=== PATIENT | male | born 1955 | race Caucasian/White ===

== ENCOUNTER → 2017-04-11 | Outpatient (CLI) | payer BC | LOC: FIMAGING 09:38 | PROVIDERS: ATTEND Orthopaedic Surgery | DX: Z01.818 Encounter for other preprocedural examination (principal); M16.11 Unilateral primary osteoarthritis, right hip ==

== ENCOUNTER 2017-04-25 08:15 | Inpatient (IN) | payer BC ==
[~2017-04-25 08:15] MED LIST: ROPIVACAINE 0.2% 80 MG, EPINEPHrine 0.2 MG, KETOROLAC TROMETHAMINE 30 MG in SYRINGE 0 ML IU ONE; TRANEXAMIC ACID 3,000 MG in NS (SYRINGE) 50 ML IRR ONE
[2017-04-25] MEDS ORDERED: TRANEXAMIC ACID 3,000 MG/50 ML BAG IRR ONE (11:07)
--- NOTE | 2017-04-25 11:14 | PDHPUP ---
History & Physical Update H&P update statement: This history and physical update is based on an assessment of the patient which was completed after admission or registration (within 24 hours), but prior to the surgery/procedure. H&P update: H&P reviewed & patient examined, no change in patient's condition since H&P completed
[2017-04-25] MEDS ORDERED: ceFAZolin 2 GM/SWFI 2 GM/20 ML SYR IVP ONE (11:36)
[2017-04-25] MEDS ORDERED: FAMOTIDINE 20 MG TAB PO ONE (11:36)
[2017-04-25] MEDS ORDERED: ACETAMINOPHEN 325 MG TAB PO ONE (11:36)
[2017-04-25] MEDS ORDERED: DEXAMETHASONE 4 MG/ML VIAL IVP ONE (11:36)
[2017-04-25] MEDS ORDERED: LIDOCAINE 1% 2 ML INJ ID PRN (11:37)
[2017-04-25] MEDS ORDERED: LR 1,000 ML IV ONE (11:37)
[2017-04-25] MEDS ORDERED: PROPOFOL/EMULSION 500 MG/50 ML BOTTLE IV ONE ×2 (12:50→13:54)
[2017-04-25] MEDS ORDERED: LIDOCAINE 2% 100 MG/5 ML SYR ONE (12:50)
[2017-04-25] MEDS ORDERED: BUPIVACAINE/DEXTROSE 7.5MG/ML 2 ML SPINAL AMP SP ONE (12:50)
--- NOTE | 2017-04-25 12:52 | PDANEPAE ---
ANE Past Medical History - Cardiovascular History Hx Hypertension: No Hx Arrhythmias: Yes Hx Chest Pain: No Hx Coronary Artery / Peripheral Vascular Disease: No Hx CHF / Valvular Disease: No Hx Palpitations: No Cardiovascular History Comment: irregular heart beat when he was laying down at night several years ago- worked up and found that he was drinking coffee too late in day - Pulmonary History Hx COPD: No Hx Asthma/Reactive Airway Disease: Yes Hx Recent Upper Respiratory Infection: No Hx Oxygen in Use at Home: No Hx Sleep Apnea: No Sleep Apnea Screening Result - Last Documented: Negative Pulmonary History Comment: mild asthma- uses inhaler prn- instructed pt to bring to hospital - Neurologic History Hx Cerebrovascular Accident: No Hx Seizures: No Hx Dementia: No Neurologic History Comment: bulging discs in neck and back - Endocrine History Hx Diabetes: No - Renal History Hx Renal Disorders: No - Liver History Hx Hepatic Disorders: No - Neurological & Psychiatric Hx Hx Neurological and Psychiatric Disorders: No - Cancer History Hx Cancer: Yes Cancer History Comment: skin ca removed from nose x1 - Congenital Disorder History Hx Congenital Disorders: No - GI History Hx Gastrointestinal Disorders: No - Other Health History Other Health History: none - Chronic Pain History Chronic Pain: Yes (right hip and back pain) - Surgical History Prior Surgeries: tonsillectomy 24 yo. wisdom teeth late 70's. appy at 2 yo ANE Review of Systems Review of Systems: - Exercise capacity METS (RN): 4 METS ANE Patient History - Allergies Allergies/Adverse Reactions: No Known Allergies Allergy (Verified 03/26/17 13:56) - Home Medications Home Medications: Mometasone 220Mcg Inhaler [Asmanex Inh (*)] 1 puffs IH DAILY 01/12/09 [Last Taken 04/23/17] Ibuprofen [Motrin (*)] 200 mg PO Q6H PRN 03/20/17 [Last Taken 04/11/17] Naproxen Sodium [Aleve 220 MG (*)] 220 mg PO BID PRN 03/20/17 [Last Taken ] - NPO status NPO Since - Liquids (Date): 04/25/17 NPO Since - Liquids (Time): 08:00 NPO Since - Solids (Date): 04/24/17 NPO Since - Solids (Time): 23:55 - Smoking Hx Smoking Status: Never smoked - Family Anes Hx Family Hx Anesthesia Complications: none ANE Labs/Vital Signs - Vital Signs Blood Pressure: 142/99 Heart Rate: 85 Respiratory Rate: 16 O2 Sat (%): 94 Height: 177.8 cm Weight: 89.358 kg ANE Physical Exam - Airway Neck exam: FROM Mallampati Score: Class 2 Mouth exam: normal dental/mouth exam - Pulmonary Pulmonary: no respiratory distress - Cardiovascular Cardiovascular: regular rate and rhythym - ASA Status ASA Status: II ANE Anesthesia Plan Anesthesia Plan: spinal Regional Anesthesia: single shot NB Total IV Anesthesia: Yes
[2017-04-25] MEDS ORDERED: DIPHENOXYLATE/ATROPINE LOMOTIL 1 TAB PO PRN (13:41)
[2017-04-25] MEDS ORDERED: METOCLOPRAMIDE 10 MG/2 ML VIAL IVP PRN (13:41)
[2017-04-25] MEDS ORDERED: CYCLOBENZAPRINE 10 MG TAB PO PRN (13:41)
[2017-04-25] MEDS ORDERED: PROMETHAZINE HCL 25 MG SUPPR PR PRN (13:41)
[2017-04-25] MEDS ORDERED: MAGNESIUM HYDROXIDE 30 ML UDCUP PO PRN (13:41)
[2017-04-25] MEDS ORDERED: PROMETHAZINE HCL 25 MG/ML INJ IVP PRN (13:41)
[2017-04-25] MEDS ORDERED: diphenhydrAMINE 25 MG CAP PO PRN (13:41)
[2017-04-25] MEDS ORDERED: ONDANSETRON DISINTEGRATING 4 MG TAB PO PRN (13:41)
[2017-04-25] MEDS ORDERED: LACTULOSE 20 GM/30 ML UDCUP PO PRN (13:41)
[2017-04-25] MEDS ORDERED: BISACODYL 10 MG SUPP PR PRN (13:41)
[2017-04-25] MEDS ORDERED: POLYETHYLENE GLYCOL 3350 17 GM PKT PO PRN (13:41)
[2017-04-25] MEDS ORDERED: TEMAZEPAM 15 MG CAP PO PRN (13:41)
[2017-04-25] MEDS ORDERED: ONDANSETRON 4 MG/2 ML VIAL IVP PRN ×2 (13:41→14:42)
[2017-04-25] MEDS ORDERED: LR 1,000 ML IV SCH (14:00)
--- NOTE | 2017-04-25 14:36 | POSTOPPROG ---
Post Op Note Date of Operation: 04/25/17 Surgeon: Verito Coronel [employer] Programmer: jenn coronel Anesthesiologist: dr. franz Anesthesia: Spinal Pre-op Diagnosis: right hip OA Post-op Diagnosis: same Indication: right hip pain due to OA that failed conservative measures Procedure: R NIKKI ant approach robot assisted Findings: severe hip OA Inf/Abcess present in the surg proc area at time of surgery?: No EBL: 100-500
[2017-04-25] MEDS ORDERED: MEPERIDINE 25 MG/ML SYR IVP PRN (14:42)
[2017-04-25] MEDS ORDERED: ALBUTEROL 3 ML DEYVIAL IH PRN (14:42)
[2017-04-25] MEDS ORDERED: fentaNYL 100 MCG/2 ML INJ IVP PRN (14:42)
[2017-04-25] MEDS ORDERED: NALOXONE HCL 0.4 MG/ML INJ IVP PRN (14:42)
--- NOTE | 2017-04-25 14:44 | POSTANESTH ---
Post Anesthetic Evaluation Cardiovascular Status: Similar to Pre-Op Cond Respiratory Status: Similar to Pre-op Cond. Level of Consciousness/Mental Status: Alert and Oriented Pain Control: Adequate, Prn Tx Ordered Nausea/Vomiting Control: Adequate, Prn Tx Ordered Complications Possibly Related to Anesthesia: None Noted
[2017-04-25] MEDS: ACETAMINOPHEN 325 MG TAB PO SCH (17:18)
[2017-04-25] MEDS: oxyCODONE IR 5 MG TAB PO PRN ×2 (17:18→21:27)
--- NOTE | 2017-04-25 18:49 | GOP ---
[f rep st] OPERATIVE REPORT DATE OF OPERATION: 04/25/2017 SURGEON: Phi White MD BOAT DIESEL MOTOR MECHANIC: TAMMY Almanzar ANESTHESIA: Spinal. PREOPERATIVE DIAGNOSIS: Right hip osteoarthritis. POSTOPERATIVE DIAGNOSIS: Right hip osteoarthritis. PROCEDURE PERFORMED: Right total hip arthroplasty with computer navigation and robotic assist. FINDINGS: ESTIMATED BLOOD LOSS: 200 cc. INDICATIONS: The patient has progressively worsening arthritis of the hip which has failed medical m anagement. The patient understands the treatment option including continued non-operative care and h as selected surgical intervention. The patient has decided to undergo total hip arthroplasty via the direct anterior approach understanding the risks of the procedure including, but not limited to, teresa rovascular injury, infection, persistent pain, component wear and loosening, deep venous thrombosis, pulmonary embolism, limb length inequality (including dislocation), and intraoperative fractures. DESCRIPTION OF PROCEDURE: After proper identification of the patient including verification and lai ing the surgical site, the patient was brought to the operating room and placed in the supine positio n. All bony prominences were well padded. Anesthesia was induced without complication and intraveno us prophylactic antibiotics were administered prior to skin incision. After prepping and draping in the usual sterile fashion, attention was drawn to the contralateral pel vis for attachment of the computer navigation tracker. Three percutaneous incisions were made over t he iliac crest and the pelvic tracker was affixed using threaded 3.5 mm pins yielding excellent fixat ion. Using computer navigation the patient's leg length and topographical pelvic anatomy was registe red without complication. Attention was then drawn to surgical exposure of the hip. An incision was made with a #10 Bard Artem r blade starting 3 cm lateral and 3 cm distal to the anterior superior iliac spine measuring 8 cm to 10 cm and coursing distally toward the greater trochanter. The skin and subcutaneous tissues were di vided sharply down the fascia rich. The fascia rich was incised in line with the skin incision expos ing the underlying tensor fascia rich muscle. This muscle was bluntly elevated from the fascia and t he first extracapsular Cobra retractor was placed laterally at the junction of the superior femoral n melissa and greater trochanter. The lateral femoral circumflex vessels were identified, cauterized and d ivided with the Aquamantys bipolar cautery. The deep investing fascia of the TFL was divided to allo w proper mobilization of the muscle preventing damage during retraction. The reflected head of the r ectus femoris muscle was elevated off the anterior hip capsule and a medial Cobra retractor was place d just proximal to the lesser trochanter. The anterior capsulotomy was made sharply from the superolateral acetabulum to the saddle junction of the superior femoral neck and greater trochanter, then coursing inferomedial towards the lesser troc hanter. The retractors were then placed in the intracapsular position for femoral neck osteotomy. C orresponding to preoperative templating the osteotomy was made with the oscillating saw protecting th e greater trochanter and soft tissues. The femoral head was removed from the acetabulum with a corks crew and confirmed to be severely arthritic with exposed bone, deformity and osteophytes. Similar fi nding were confirmed in the acetabulum. The Arch table extension was then placed in 40 degrees external rotation. Attention was then drawn t o the acetabular preparation. After placement of the anterior and posterior Cobra retractors outside the labrum and intrascapular the circumferential labrum was removed sharply. The foveal contents we re then removed and hemostasis obtained with cautery. The anatomy of the acetabulum was then registe red using computer navigation. The first reamer selected was sized using the removed femoral head. Reaming began with robotic tiarra t at 40 degrees of abduction and 20 degrees of anteversion using computer navigation. Reaming ceased 0 mm less than the definitive acetabular component. The final acetabular component was inserted usi ng the computer to achieve proper orientation yielding excellent purchase and stability in the acetab ulum. The final acetabular liner was then placed and its seating confirmed. Attention was then turned to the femur. The Arch table extension was placed in extension and adducti on delivering the osteotomized femoral neck into the wound. A 2-pronged femoral elevator was placed at the calcar and another at the tip of the greater trochanter. The posterolateral capsule was relea sed with cautery allowing mobilization of the femur lateral and anterior for preparation. The applications engineer al rotators were visualized and preserved. A curette and rongeur were used to open the starting poin t for broaching. Serial broaching started with the #0 broach and ended with the broach that exhibited excellent fit in the proximal femur. A change in pitch during mallet strikes was accompanied by the inability to advance the broach any further. The trial reduction was performed and fluoroscopic fany igation was utilized to check limb length. Adjustments were made to equalize limb length accordingly . After the final trials were accepted they were removed and the wound was copiously lavaged. The femo ral component was seated to the same depth as the final broach and the femoral head was impacted onto the clean trunnion. The hip was then reduced for the final time and once more fluoroscopic navigati on used to check that limb length equality was achieved. The wound was irrigated and closed in layers, the fascia rich with 2-0 Quill, the subcutaneous tissue with a 2-0 Quill, and the skin with Dermabond, including the small incisions for computer navigation . Sterile dressings were applied. Final sharps and sponge counts were accurate. The patient was th en transferred to a hospital bed and brought to the recovery room in stable condition. IMPLANTS: Accolade II, size 5 at 127. Acetabular component is a 54 mm Trident II. The liner is a T rident X3, 36 mm. The head is a Biolox Delta, 36 mm +0. /[id number]/MODL
[2017-04-25] MEDS: FAMOTIDINE 20 MG TAB PO SCH (21:19)
[2017-04-25] MEDS: ASPIRIN 81 MG CHEWABLE TAB PO SCH (21:19)
[2017-04-25] MEDS: SENNOSIDES/DOCUSATE SODIUM TAB PO SCH (21:20)
[2017-04-25] MEDS: ceFAZolin 2 GM/DEXTROSE 100 ML IV SCH (21:21)
[2017-04-26] MEDS: ACETAMINOPHEN 325 MG TAB PO SCH ×3 (00:05→11:19)
[2017-04-26] MEDS: ceFAZolin 2 GM/DEXTROSE 100 ML IV SCH (04:36)
[2017-04-26 07:20] VITALS: BP 132/84; PULSE 77; RESP 18; TEMP 98.3; O2SAT 94
[2017-04-26] MEDS ORDERED: MOMETASONE 220MCG INHALER IH SCH (09:00)
[2017-04-26] MEDS ORDERED: MOMETASONE 220 MCG IH SCH (09:00)
[2017-04-26] MEDS: SENNOSIDES/DOCUSATE SODIUM TAB PO SCH (09:14)
[2017-04-26] MEDS: ASPIRIN 81 MG CHEWABLE TAB PO SCH (09:14)
[2017-04-26] MEDS: FAMOTIDINE 20 MG TAB PO SCH (09:14)
--- NOTE | 2017-04-26 11:52 | SOAPPROG ---
SOAP Progress Note Assessment/Plan: Assessment: Patient is doing well POD 1 s/p R NIKKI Pain management: pain is well controlled on oral pain meds. VTE ppx: recommend aspirin 81 mg BID for 4 weeks, cont TIM and SCDs Anemia: level is expected initially postop. Asymptomatic. Continue to monitor D/c planning: d/c to home today pending release from PT Plan: 04/26/17 12:56 Subjective: mee is doing well today, denies SOB, chest pain and n/v Objective: Vital Signs Temp Pulse Resp BP Pulse Ox 36.8 C 77 18 132/84 H 94 04/26/17 07:18 04/26/17 07:18 04/26/17 07:18 04/26/17 07:18 04/26/17 07:18 Laboratory Results 04/26/17 04:30 04/25/17 04/26/17 04/27/17 05:59 05:59 05:59 Intake Total 1675 Output Total 1300 275 Balance 375 -275 incision dressing is clean and dry, NVI, +pf/df ICD10 Worksheet Patient Problems: Problems Problem Status Onset Primary localized osteoarthritis of right hip Acute
== END 2017-04-26 11:57 | disposition home or self-care (01) | DRG 470 ==
LOC: F3N 11:04
PROVIDERS: ADMIT Orthopaedic Surgery; ATTEND Orthopaedic Surgery
PROC: 8E0Y0CZ Robotic Assisted Procedure of Lower Extremity, Open Approach (ICD-10-PCS; principal; 2017-04-25 13:15)
PROC: 8E0YXBG Computer Assisted Procedure of Lower Extremity, With Computerized Tomography (ICD-10-PCS; principal; 2017-04-25 13:15)
PROC: 0SR902Z Replacement of Right Hip Joint with Metal on Polyethylene Synthetic Substitute, Open Approach (ICD-10-PCS; principal; 2017-04-25 13:15)
DX: M16.11 Unilateral primary osteoarthritis, right hip (principal); Z85.828 Personal history of other malignant neoplasm of skin
CPT/HCPCS: 97161-GP; 97165-GO; J0171; J0690; J1100; J1885; J2001; J2704; J2795

== ENCOUNTER → 2017-11-28 | Outpatient (CLI) | payer BC | LOC: FIMAGING 08:27 | PROVIDERS: ATTEND Orthopaedic Surgery | DX: M16.12 Unilateral primary osteoarthritis, left hip (principal) ==

== ENCOUNTER 2017-12-05 05:52 | Inpatient (IN) | payer BC ==
[2017-12-05] MEDS ORDERED: TRANEXAMIC ACID 3,000 MG in NS (SYRINGE) 50 ML IRR ONE (06:00)
[2017-12-05] MEDS ORDERED: ROPIVACAINE 0.2% 80 MG, EPINEPHrine 0.2 MG, KETOROLAC TROMETHAMINE 30 MG in SYRINGE 0 ML IU ONE (06:00)
[2017-12-05] MEDS ORDERED: ceFAZolin 2 GM/DEXTROSE 100 ML IV ONE (06:19)
[2017-12-05] MEDS ORDERED: ACETAMINOPHEN 325 MG TAB PO ONE (06:19)
[2017-12-05] MEDS ORDERED: DEXAMETHASONE 4 MG/ML VIAL IVP ONE (06:19)
[2017-12-05] MEDS ORDERED: FAMOTIDINE 20 MG TAB PO ONE (06:19)
[2017-12-05] MEDS ORDERED: LIDOCAINE 1% 2 ML INJ ID PRN (06:22)
[2017-12-05] MEDS ORDERED: TRANEXAMIC ACID 3,000 MG/50 ML BAG IRR ONE (06:22)
[2017-12-05] MEDS ORDERED: LR 1,000 ML IV ONE (06:22)
[2017-12-05] MEDS ORDERED: LIDOCAINE 2% 100 MG/5 ML SYR ONE (06:39)
[2017-12-05] MEDS ORDERED: BUPIVACAINE/DEXTROSE 7.5MG/ML 2 ML SPINAL AMP SP ONE (06:39)
[2017-12-05] MEDS ORDERED: PROPOFOL/EMULSION 500 MG/50 ML BOTTLE IV ONE (06:39)
[2017-12-05] MEDS ORDERED: MIDAZOLAM 2 MG/2 ML VIAL ONE (06:40)
[2017-12-05] MEDS ORDERED: PHENYLEPHRINE HCL 100 MCG/ML SYR ONE (06:54)
--- NOTE | 2017-12-05 06:57 | PDANEPAE ---
ANE History of Present Illness R NIKKI ANE Past Medical History - Cardiovascular History Hx Hypertension: No Hx Arrhythmias: No Hx Chest Pain: No Hx Coronary Artery / Peripheral Vascular Disease: No Hx CHF / Valvular Disease: No Hx Palpitations: No Cardiovascular History Comment: irregular heart beat when he was laying down at night several years ago- worked up and found that he was drinking coffee too late in day - Pulmonary History Hx COPD: No Hx Asthma/Reactive Airway Disease: Yes Hx Recent Upper Respiratory Infection: No Hx Oxygen in Use at Home: No Hx Sleep Apnea: No Sleep Apnea Screening Result - Last Documented: Negative Pulmonary History Comment: mild asthma- uses inhaler prn - Neurologic History Hx Cerebrovascular Accident: No Hx Seizures: No Hx Dementia: No Neurologic History Comment: bulging discs in neck and back - Endocrine History Hx Diabetes: No - Renal History Hx Renal Disorders: No - Liver History Hx Hepatic Disorders: No - Neurological & Psychiatric Hx Hx Neurological and Psychiatric Disorders: No - Cancer History Hx Cancer: Yes Cancer History Comment: skin ca removed from nose x1 - Congenital Disorder History Hx Congenital Disorders: No - GI History Hx Gastrointestinal Disorders: No - Other Health History Other Health History: none - Chronic Pain History Chronic Pain: No - Surgical History Prior Surgeries: tonsillectomy 24 yo. wisdom teeth late 70's. appy at 2 yo. R NIKKI 05/06 ANE Review of Systems Review of Systems: - Exercise capacity METS (RN): 4 METS ANE Patient History - Allergies Allergies/Adverse Reactions: No Known Allergies Allergy (Verified 03/26/17 13:56) - Home Medications Home Medications: Finasteride [Propecia] 1 mg PO HS 10/29/17 [Last Taken 12/04/17] Multivitamins [Multivitamin (*)] 1 each PO DAILY 10/29/17 [Last Taken 11/21/17] Naproxen Sodium [Aleve 220 MG (*)] 1 mg PO HS 10/29/17 [Last Taken 11/21/17] Asmanex Inh (*) 11/02/17 [Last Taken 12/01/17] Flonase Nasal [place] 11/02/17 [Last Taken Unknown] - Smoking Hx Smoking Status: Never smoked - Family Anes Hx Family Hx Anesthesia Complications: none ANE Labs/Vital Signs - Vital Signs Height: 177.8 cm Weight: 86.183 kg ANE Physical Exam - Airway Neck exam: FROM Mallampati Score: Class 1 Mouth exam: normal dental/mouth exam - Pulmonary Pulmonary: no respiratory distress - Cardiovascular Cardiovascular: regular rate and rhythym - ASA Status ASA Status: II ANE Anesthesia Plan Anesthesia Plan: MAC, spinal
[2017-12-05] MEDS ORDERED: DEXAMETHASONE 4 MG/ML VIAL ONE (07:00)
[2017-12-05] MEDS ORDERED: ONDANSETRON 4 MG/2 ML VIAL ONE (07:00)
[2017-12-05] MEDS ORDERED: fentaNYL 100 MCG/2 ML INJ ONE ×2 (07:39→09:10)
[2017-12-05] MEDS ORDERED: CYCLOBENZAPRINE 10 MG TAB PO PRN (08:45)
[2017-12-05] MEDS ORDERED: POLYETHYLENE GLYCOL 3350 17 GM PKT PO PRN (08:45)
[2017-12-05] MEDS ORDERED: BISACODYL 10 MG SUPP PR PRN (08:45)
[2017-12-05] MEDS ORDERED: MAGNESIUM HYDROXIDE 30 ML UDCUP PO PRN (08:45)
[2017-12-05] MEDS ORDERED: LACTULOSE 20 GM/30 ML UDCUP PO PRN (08:45)
[2017-12-05] MEDS ORDERED: METOCLOPRAMIDE 10 MG/2 ML VIAL IVP PRN (08:45)
[2017-12-05] MEDS ORDERED: PROMETHAZINE HCL 25 MG SUPPR PR PRN (08:45)
[2017-12-05] MEDS ORDERED: diphenhydrAMINE 25 MG CAP PO PRN (08:45)
[2017-12-05] MEDS ORDERED: ONDANSETRON DISINTEGRATING 4 MG TAB PO PRN (08:45)
[2017-12-05] MEDS ORDERED: DIPHENOXYLATE/ATROPINE LOMOTIL 1 TAB PO PRN (08:45)
[2017-12-05] MEDS ORDERED: ONDANSETRON 4 MG/2 ML VIAL IVP PRN (08:45)
[2017-12-05] MEDS ORDERED: TEMAZEPAM 15 MG CAP PO PRN (08:45)
[2017-12-05] MEDS ORDERED: PROMETHAZINE HCL 25 MG/ML INJ IVP PRN (08:45)
--- NOTE | 2017-12-05 08:45 | POSTOPPROG ---
Post Op Note Date of Operation: 12/05/17 Surgeon: Verito Coronel Carton Inspector: jenn coronel Anesthesiologist: dr. quintero Anesthesia: Spinal Pre-op Diagnosis: left hip OA Post-op Diagnosis: same Indication: left hip pain Procedure: L NIKKI ant approach, robot assisted Findings: severe hip OA Inf/Abcess present in the surg proc area at time of surgery?: No EBL: 100-500
[2017-12-05] MEDS ORDERED: LR 1,000 ML IV SCH (09:00)
[2017-12-05] MEDS: fentaNYL 100 MCG/2 ML INJ IVP PRN ×2 (09:09→09:20)
[2017-12-05] MEDS ORDERED: NALOXONE HCL 0.4 MG/ML INJ IVP PRN (09:10)
[2017-12-05] MEDS ORDERED: HYDROmorphONE/DILAUDID 1 MG/ML INJ IVP PRN (09:10)
[2017-12-05] MEDS ORDERED: HYDROmorphONE/DILAUDID 2 MG/ML INJ ONE (09:10)
[2017-12-05] MEDS ORDERED: ALBUTEROL 3 ML DEYVIAL IH PRN (09:10)
[2017-12-05] MEDS: HYDROmorphONE/DILAUDID 2 MG/ML INJ IVP PRN ×2 (09:10→09:20)
[2017-12-05] MEDS ORDERED: NS 500 ML IV PRN (09:10)
[2017-12-05] MEDS ORDERED: MEPERIDINE 25 MG/0.5 ML AMP IVP PRN (09:10)
[2017-12-05] MEDS: FAMOTIDINE 20 MG TAB PO SCH (10:10)
[2017-12-05] MEDS: SENNOSIDES/DOCUSATE SODIUM TAB PO SCH ×2 (10:10→21:33)
[2017-12-05] MEDS: oxyCODONE IR 5 MG TAB PO PRN ×4 (10:57→23:27)
[2017-12-05] MEDS: ACETAMINOPHEN 325 MG TAB PO SCH ×3 (11:06→23:28)
[2017-12-05] MEDS: MOMETASONE 220MCG INHALER IH SCH (11:47)
[2017-12-05] MEDS: ceFAZolin 2 GM/DEXTROSE 100 ML IV SCH ×2 (14:22→21:33)
--- NOTE | 2017-12-05 14:35 | PDMN ---
Medical Necessity Medical necessity: [facility] [place] S560 hip arthroplasty INPT only L NIKKI
--- NOTE | 2017-12-05 15:25 | POSTANESTH ---
Post Anesthetic Evaluation Cardiovascular Status: Normal, Stable Respiratory Status: Normal, Stable Level of Consciousness/Mental Status: Alert and Oriented Pain Control: Adequate, Prn Tx Ordered Nausea/Vomiting Control: Adequate, Prn Tx Ordered Complications Possibly Related to Anesthesia: None Noted (Exam limited due to residual spinal and mild bilater LE weakness while in PACU. Met PACU criteria for DC to floor)
[2017-12-05] MEDS ORDERED: FLUTICASONE NASAL 120 SPRAYS/16 GM MDI NS PRN (21:00)
[2017-12-05] MEDS ORDERED: Finasteride [Propecia] 1 MG PO SCH (21:00)
[2017-12-05] MEDS: ASPIRIN 81 MG CHEWABLE TAB PO SCH (21:33)
[2017-12-06 06:01] VITALS: BP 115/68
[2017-12-06] MEDS: ACETAMINOPHEN 325 MG TAB PO SCH (06:03)
[2017-12-06] MEDS: MOMETASONE 220MCG INHALER IH SCH (08:19)
[2017-12-06] MEDS: ASPIRIN 81 MG CHEWABLE TAB PO SCH (08:22)
[2017-12-06] MEDS: SENNOSIDES/DOCUSATE SODIUM TAB PO SCH (08:22)
[2017-12-06] MEDS: FAMOTIDINE 20 MG TAB PO SCH (08:22)
--- NOTE | 2017-12-06 08:28 | SOAPPROG ---
SOAP Progress Note Assessment/Plan: Assessment: Patient is doing well POD 1 s/p L NIKKI Pain management: pain is well controlled on oral pain meds. VTE ppx: recommend aspirin 81 mg BID for 4 weeks, cont TIM and SCDs Anemia: level is expected initially postop. Asymptomatic. Continue to monitor D/c planning: d/c to home today pending release from PT Plan: 12/06/17 08:28 Subjective: pain is minimal, denies SOB, chest pain and N/V. Objective: Vital Signs Temp Pulse Resp BP Pulse Ox 37.1 C 88 16 115/68 95 12/06/17 06:01 12/06/17 06:01 12/06/17 06:01 12/06/17 06:01 12/06/17 06:01 Laboratory Results 12/06/17 04:33 12/06/17 04:33 12/05/17 12/06/17 12/07/17 05:59 05:59 05:59 Intake Total 1250 Output Total 2375 Balance -1125 LLE: incision dressing is clean and dry, NVI, +pf/df ICD10 Worksheet Patient Problems: Problems Problem Status Onset Primary localized osteoarthritis of left hip Acute Primary localized osteoarthritis of right hip Acute
--- NOTE | 2017-12-06 08:46 | GDS ---
ADMISSION DIAGNOSIS: Left hip osteoarthritis. DISCHARGE DIAGNOSIS: Left hip osteoarthritis. PROCEDURE: Left total hip arthroplasty. VTE PROPHYLAXIS: Recommend aspirin 81 mg twice daily for 4 weeks. BRIEF DESCRIPTION OF HOSPITAL STAY: Patient was admitted for an elective joint arthroplasty. The polina young tolerated the procedure well and has passed physical therapy. The patient was given appropriat e antibiotic prophylaxis and venous thromboembolism prophylaxis. The patient's pain was well control led on oral pain medication, patient was holding down food, and had urinated. Decision was made to d ischarge the patient. The patient was given post-operative prescriptions pre-operatively. PLAN: Follow up as scheduled with Dr. White's office December 27. /[id number]/MODL
--- NOTE | 2017-12-06 09:32 | GOP ---
DATE OF OPERATION: 12/05/2017 SURGEON: Phi White MD SUBMARINE OPERATOR: TAMMY Almanzar ANESTHESIA: Spinal. PREOPERATIVE DIAGNOSIS: Left hip osteoarthritis. POSTOPERATIVE DIAGNOSIS: Left hip osteoarthritis. PROCEDURE PERFORMED: Left total hip arthroplasty with computer navigation. FINDINGS: ESTIMATED BLOOD LOSS: 30 cc. INDICATIONS: The patient has progressively worsening arthritis of the hip which has failed medical m anagement. The patient understands the treatment option including continued non-operative care and h as selected surgical intervention. The patient has decided to undergo total hip arthroplasty via the direct anterior approach understanding the risks of the procedure including, but not limited to, teresa rovascular injury, infection, persistent pain, component wear and loosening, deep venous thrombosis, pulmonary embolism, limb length inequality (including dislocation), and intraoperative fractures. DESCRIPTION OF PROCEDURE: After proper identification of the patient including verification and lai ing the surgical site, the patient was brought to the operating room and placed in the supine positio n. All bony prominences were well padded. Anesthesia was induced without complication and intraveno us prophylactic antibiotics were administered prior to skin incision. After prepping and draping in the usual sterile fashion, attention was drawn to the contralateral pel vis for attachment of the computer navigation tracker. Three percutaneous incisions were made over t he iliac crest and the pelvic tracker was affixed using threaded 3.5 mm pins yielding excellent fixat ion. Using computer navigation the patient's leg length and topographical pelvic anatomy was registe red without complication. Attention was then drawn to surgical exposure of the hip. An incision was made with a #10 Bard Artem r blade starting 3 cm lateral and 3 cm distal to the anterior superior iliac spine measuring 8 cm to 10 cm and coursing distally toward the greater trochanter. The skin and subcutaneous tissues were di vided sharply down the fascia rich. The fascia rich was incised in line with the skin incision expos ing the underlying tensor fascia rich muscle. This muscle was bluntly elevated from the fascia and t he first extracapsular Cobra retractor was placed laterally at the junction of the superior femoral n melissa and greater trochanter. The lateral femoral circumflex vessels were identified, cauterized and d ivided with the Aquamantys bipolar cautery. The deep investing fascia of the TFL was divided to allo w proper mobilization of the muscle preventing damage during retraction. The reflected head of the r ectus femoris muscle was elevated off the anterior hip capsule and a medial Cobra retractor was place d just proximal to the lesser trochanter. The anterior capsulotomy was made sharply from the superolateral acetabulum to the saddle junction of the superior femoral neck and greater trochanter, then coursing inferomedial towards the lesser troc hanter. The retractors were then placed in the intracapsular position for femoral neck osteotomy. C orresponding to preoperative templating the osteotomy was made with the oscillating saw protecting th e greater trochanter and soft tissues. The femoral head was removed from the acetabulum with a corks crew and confirmed to be severely arthritic with exposed bone, deformity and osteophytes. Similar fi ndings were confirmed in the acetabulum. The Arch table extension was then placed in 40 degrees external rotation. Attention was then drawn t o the acetabular preparation. After placement of the anterior and posterior Cobra retractors outside the labrum and intrascapular the circumferential labrum was removed sharply. The foveal contents we re then removed and hemostasis obtained with cautery. The anatomy of the acetabulum was then registe red using computer navigation. The first reamer selected was sized using the removed femoral head. Reaming began with robotic tiarra t at 40 degrees of abduction and 20 degrees of anteversion using computer navigation. Reaming ceased 0 mm less than the definitive acetabular component. The final acetabular component was inserted usi ng the computer to achieve proper orientation yielding excellent purchase and stability in the acetab ulum. The final acetabular liner was then placed and its seating confirmed. Attention was then turned to the femur. The Arch table extension was placed in extension and adducti on delivering the osteotomized femoral neck into the wound. A 2-pronged femoral elevator was placed at the calcar and another at the tip of the greater trochanter. The posterolateral capsule was relea sed with cautery allowing mobilization of the femur lateral and anterior for preparation. The filling hauler al rotators were visualized and preserved. A curette and rongeur were used to open the starting poin t for broaching. Serial broaching started with the #0 broach and ended with the broach that exhibited excellent fit in the proximal femur. A change in pitch during mallet strikes was accompanied by the inability to advance the broach any further. The trial reduction was performed and fluoroscopic fany igation was utilized to check limb length. Adjustments were made to equalize limb length accordingly . After the final trials were accepted they were removed and the wound was copiously lavaged. The femo ral component was seated to the same depth as the final broach and the femoral head was impacted onto the clean trunnion. The hip was then reduced for the final time and once more fluoroscopic navigati on used to check that limb length equality was achieved. The wound was irrigated and closed in layers, the fascia rich with 2-0 Quill, the subcutaneous tissue with a 2-0 Quill, and the skin with Dermabond, including the small incisions for computer navigation . Sterile dressings were applied. Final sharps and sponge counts were accurate. The patient was th en transferred to a hospital bed and brought to the recovery room in stable condition. IMPLANTS: Accolade II size 5, 127 acetabular component, a 54 mm Trident, liner is a Trident X3 36 mm . Head is a Biolox Delta 36 mm +0. /[id number]/MODL
--- NOTE | 2017-12-06 11:18 | ASMTLACE ---
LACE Length of stay for Answers: 2 days current admission Acuity / Level of Answers: Yes Care: Did the patient have an inpatient admission? Comorbidities - select Answers: Other Notes: Asthma all that apply # of Emergency department Answers: 0 visits in the last 6 months Score: 6 Date Signed: 12/06/2017 11:18 AM Electronically Signed By:JB Nieves
== END 2017-12-06 10:12 | disposition home or self-care (01) | DRG 470 ==
LOC: F3N 05:52
PROVIDERS: ADMIT Orthopaedic Surgery; ATTEND Orthopaedic Surgery
PROC: 0SRB04Z Replacement of Left Hip Joint with Ceramic on Polyethylene Synthetic Substitute, Open Approach (ICD-10-PCS; principal; 2017-12-05 07:15)
PROC: 8E0WXBF Computer Assisted Procedure of Trunk Region, With Fluoroscopy (ICD-10-PCS; principal; 2017-12-05 07:15)
DX: M16.12 Unilateral primary osteoarthritis, left hip (principal); J45.909 Unspecified asthma, uncomplicated
CPT/HCPCS: 97116-GP; 97161-GP; J0171; J0690; J1100; J1170; J1885; J2001; J2250; J2370; J2405; J2704; J2795; J3010